=== PATIENT | male | born 1940 | race Caucasian/White ===

== ENCOUNTER 2017-03-16 10:01 | Day surgery (SDC) | payer BC, MEDICARE ==
--- NOTE | ~2017-03-16 | EGD ---
EGD REPORT [facility] [address] [address] NAME: LAURYN HILLMAN : [birth year] STATUS : REG [facility] PAT#: [id number] AGE: 76 ADM/REG DATE : 03/16/17 MR#: [id number] REPORT SERV DATE: 03/16/17 DICTATED BY: CHERELLE TYSON DATE: 03/16/17 REPORT STATUS : Draft TRANS[facility]IBED BY: [facility] DATE: 03/16/17 Endoscopy Center Patient Name: Lauryn Hillman Date of : 1940 Attending MD: CHERELLE TYSON MD Procedure Date No Time: 03/16/2017 Procedure: Upper GI endoscopy Indications: Follow-up of Cohen's esophagus Referring MD: MELISSA BAKER II Medicines: as per anesthesia Complications: No immediate complications. Procedure: Pre-Anesthesia Assessment: - ASA Grade Assessment: III - A patient with severe systemic disease. After obtaining informed consent, the endoscope was passed under direct vision. Throughout the procedure, the patient's blood pressure, pulse, and oxygen saturations were monitored continuously. The GIF [id number] was introduced through the mouth, and advanced to the third part of duodenum. The upper GI endoscopy was accomplished without difficulty. The patient tolerated the procedure. Findings: There were esophageal mucosal changes secondary to established short-segment Cohen's disease present in the lower third of the esophagus. The maximum longitudinal extent of these mucosal changes was 1 cm in length. Mucosa was biopsied with a cold forceps for histology randomly at intervals of 0.5 cm in the lower third of the esophagus. One specimen bottle was sent to pathology. The entire examined stomach was normal. The cardia and gastric fundus were normal on retroflexion. The examined duodenum was normal. Impression: - Esophageal mucosal changes secondary to established short-segment Cohen's disease. Biopsied. - Normal stomach. - Normal examined duodenum. Recommendation: - Await pathology results. - Follow an antireflux regimen. - Continue present medications. Procedure Code(s): --- Professional --- 27465, Esophagogastroduodenoscopy, flexible, transoral; EGD REPORT [address] [place]. [address] NAME: LAURYN HILLMAN : [birth year] STATUS : REG [facility] PAT#: [id number] AGE: 76 ADM/REG DATE : 03/16/17 MR#: [id number] REPORT SERV DATE: 03/16/17 DICTATED BY: CHERELLE TYSON. DATE: 03/16/17 REPORT STATUS : Draft TRANSCRIBED BY: [facility] DATE: 03/16/17 with biopsy, single or multiple Diagnosis Code(s): --- Professional --- K22.70, Cohen's esophagus without dysplasia CPT copyright 2013 [employer]. All rights reserved. The codes documented in this report are preliminary and upon crew chief review may be revised to meet current compliance requirements. CHERELLE TYSON MD 03/16/2017 12:26 PM This report has been signed electronically. Number of Addenda: 0 Note Initiated On: 03/16/2017 12:06 PM Scope Withdrawal Time 0 hours 0 minutes 0 seconds [address] [place] [address]
[~2017-03-16 10:01] MED LIST: ACCUNEB INH; ADVAIR INH; ADVAIR250 INH; ALBUTEROL0.63 MG/3 INH; ASA5GR PO; ASAB PO; ATEN25 PO; ATROVENT HFA17 MCG INH; BEN25 PO; BREO ELLIPTA INH; CADUET10 MG/10 M PO; COMBIVENT INH; COQ-10200 MG PO; COQ10100 MG PO; COZAAR100 MG PO; DIGITEK0.125 MG PO; ENDOCET1 TAB PO; FERROUS SULF325 M1 PO; FLOMAX4 PO; GAS-X80 MG PO; HYDROMET1 ML PO; IPRA17AE INH; IRON325 MG PO; ISORDIL10 PO; L20 PO; LAN125 PO; LEVAQUIN750 MG PO; LIPITOR40 PO; MEPHYTON 5 MG TA5 MG PO; MUCINEX1200 MG PO; MUCINEX600 MG PO; NITROSTAT0.4 MG SL; NORCO1 TA1 PO; NTG150 SL; P20; PCET PO; PERCOCET1 TA2 PO; PLAVIX PO; PRILO PO; PRIN5 PO; PROAIR HFA; PROAIR HFA INH; REFENESEN400 MG PO; SINGULAIR1 PO; SPIRIVA INH; SPIRO25 PO; SYMBICORT 160/41 INH INH; TOPXL25 PO; UBIQUINOL PO; VITAMIN D31000 UNIT PO; VITAMIN K PO; XOPEN0.5ML INH; ZOCOR10 PO; ZYRTEC ALLGY10 MG PO
== END 2017-03-16 23:59 | disposition home or self-care (01) ==
LOC: DMU 10:01
PROVIDERS: Internal Medicine Gastroenterology
PROC: 0DB38ZX Excision of Lower Esophagus, Via Natural or Artificial Opening Endoscopic, Diagnostic (ICD-10-PCS; principal; 2017-03-16 11:30)
DX: K22.70 Barrett's esophagus without dysplasia (principal); K21.0 Gastro-esophageal reflux disease with esophagitis; I10 Essential (primary) hypertension; Z95.5 Presence of coronary angioplasty implant and graft; J44.9 Chronic obstructive pulmonary disease, unspecified; Z99.81 Dependence on supplemental oxygen; Z79.899 Other long term (current) drug therapy; Z79.51 Long term (current) use of inhaled steroids; Z79.891 Long term (current) use of opiate analgesic; Z79.82 Long term (current) use of aspirin
CPT/HCPCS: 88305